=== PATIENT | male | born 1995 | race Caucasian/White ===

== ENCOUNTER 2016-05-30 02:48 | Emergency (ER) | payer OTHER ==
[2016-05-30 02:56] VITALS: TEMP 97.8
[2016-05-30] MEDS ORDERED: FAMOTIDINE 20 MG/2 ML VIAL IV STA (03:11)
[2016-05-30] MEDS ORDERED: ONDANSETRON 4 MG/2 ML VIAL IVP STA (03:11)
[2016-05-30] MEDS ORDERED: SODIUM CHLORIDE 0.9% 1,000 ML IV ONE (03:11)
[2016-05-30 03:31] LABS: Basophils % (A) 0 %; CH 30.4; CHCM 34.7; Eosinophils # (A) 0.2 k/uL (0-0.7); Eosinophils % (A) 1 %; HDW 2.43; HGB 18.4 gm/dL (13.0-17.5); Luc # (Auto) 0.25; Luc % (Auto) 2; Lymphocytes # (A) 2.3 k/uL (1.0-4.8); Lymphocytes % (A) 15 %; MCHC 34.1 g/dL (31.0-37.0); Mean Platelet Volume 8.1; Monocytes # (A) 0.5 k/uL (0-1.0); Monocytes % (A) 3 %; Neutrophils # (A) 12.2 k/uL (1.3-7.7); Neutrophils % (A) 79 %; RBC 6.14 m/uL (4.30-5.90); RDW 12.4 % (11.5-15.5); WBC 15.5 k/uL (3.8-10.6); WBC (Perox) 16.94
[2016-05-30 03:33] LABS: Appearance,Urine Clear (Clear); Bacteria,Urine Rare /hpf; Bilirubin,Urine Negative (Negative); Glucose,Urine (UA) Negative (Negative); Ketones,Urine Negative (Negative); Leukocyte Esterase,Urine Negative (Negative); Mucus,Urine Few /hpf; Nitrite,Urine Negative (Negative); PH, Urine 6.5 (5.0-8.0); Particle Count 5467; Protein,Urine 1+ (Negative); RBC,Urine 1 /hpf (0-5); Specific Gravity,Urine 1.025 (1.001-1.035); Squamous Epithelial Cell,Urine <1 /hpf (0-4); UA Billing (MACRO vs. MICRO) MICRO; WBC,Urine 1 /hpf (0-5)
[2016-05-30 03:41] LABS: ALT 328 U/L (21-72); AST 132 U/L (17-59); Alkaline Phosphatase 95 U/L (38-126); Amylase 108 U/L (30-110); Anion Gap 20 mmol/L; Blood Urea Nitrogen 17 mg/dL (9-20); Calcium 11.1 mg/dL (8.4-10.2); Carbon Dioxide 23 mmol/L (22-30); Chloride 100 mmol/L (98-107); Glucose 118 mg/dL (74-99); Magnesium 1.9 mg/dL (1.6-2.3); Non-African American GFR(MDRD) >60 (>60 ml/min/1.73 sqM); Potassium 4.3 mmol/L (3.5-5.1); Sodium 143 mmol/L (137-145); Total Bilirubin 0.6 mg/dL (0.2-1.3); Total Protein 9.7 g/dL (6.3-8.2)
--- NOTE | 2016-05-30 03:45 | ED ---
Abdominal Pain HPI - General Source: patient, RN notes reviewed Mode of arrival: ambulatory Limitations: no limitations <Peyton Aldridge - Last Filed: 05/30/16 03:54> <Chay Hand - Last Filed: 05/30/16 05:44> - General Chief Complaint: Abdominal Pain Stated Complaint: chest pains, nausea, RONEL Time Seen by Provider: 05/30/16 03:02 - History of Present Illness Initial Comments: Patient's 20-year-old male presents to the emergency room for evaluation of nausea, vomiting, abdominal pain chest pain. Patient states symptoms began about 3 hours ago. Patient states he vomited about 3 times. Patient states every time he is about to vomit he has chest pain that travels to his midepigastric area. Patient does state that when he's vomiting he feels short of breath. Patient's denies any recent travel out of the country. Patient denies trying new foods. Patient denies any fevers, chills. Patient denies any current chest pain while laying down. Patient denies shortness of breath. Patient does admit that he smokes about pack a day. Patient states he is feeling slightly dizzy. Patient denies pain or burning during urination, trouble urinating or blood in urine. Patient denies back pain. Patient denies abdominal surgeries. Patient denies any significant past medical history. Patient denies taking any medications. Patient denies constipation or diarrhea. (Peyton Aldridge) - Related Data Home Medications Medication Instructions Recorded Confirmed No Known Home Medications [No 04/01/15 05/30/16 Known Home Medications] Allergies Allergy/AdvReac Type Severity Reaction Status Date / Time No Known Allergies Allergy Verified 05/30/16 02:56 Review of Systems ROS Other: All systems not noted in ROS Statement are negative. <Peyton Aldridge - Last Filed: 05/30/16 03:54> ROS Other: All systems not noted in ROS Statement are negative. <Chay Hand - Last Filed: 05/30/16 05:44> ROS Statement: Those systems with pertinent positive or pertinent negative responses have been documented in the HPI. Past Medical History Past Medical History: No Reported History History of Any Multi-Drug Resistant Organisms: None Reported Past Surgical History: No Surgical Hx Reported Past Psychological History: ADD/ADHD Smoking Status: Current every day smoker Past Alcohol Use History: Occasional Past Drug Use History: None Reported <Katalina Aldridgera Katelyn - Last Filed: 05/30/16 03:54> General Exam Limitations: no limitations General appearance: alert, in no apparent distress Head exam: Present: atraumatic, normocephalic, normal inspection Eye exam: Present: normal appearance ENT exam: Present: normal exam Neck exam: Present: normal inspection Respiratory exam: Present: normal lung sounds bilaterally. Absent: respiratory distress Cardiovascular Exam: Present: normal rhythm, tachycardia, normal heart sounds GI/Abdominal exam: Present: soft, tenderness (Upper epigastric and right upper quadrant), normal bowel sounds. Absent: distended, guarding, rebound, rigid Extremities exam: Present: normal inspection Back exam: Present: normal inspection Neurological exam: Present: alert, oriented X3, CN II-XII intact, normal gait Psychiatric exam: Present: normal affect, normal mood Skin exam: Present: warm, dry, intact, normal color. Absent: rash <Luis CarlosPeyton L - Last Filed: 05/30/16 03:54> General appearance: alert, in no apparent distress Head exam: Present: atraumatic, normocephalic, normal inspection Eye exam: Present: normal appearance, PERRL, EOMI. Absent: scleral icterus, conjunctival injection, periorbital swelling ENT exam: Present: normal exam, mucous membranes moist Neck exam: Present: normal inspection. Absent: tenderness, meningismus, lymphadenopathy Respiratory exam: Present: normal lung sounds bilaterally. Absent: respiratory distress, wheezes, rales, rhonchi, stridor Cardiovascular Exam: Present: regular rate, normal rhythm, normal heart sounds. Absent: systolic murmur, diastolic murmur, rubs, gallop, clicks GI/Abdominal exam: Present: soft, normal bowel sounds. Absent: distended, tenderness, guarding, rebound, rigid Extremities exam: Present: normal inspection, full ROM, normal capillary refill. Absent: tenderness, pedal edema, joint swelling, calf tenderness Back exam: Present: normal inspection Neurological exam: Present: alert, oriented X3, CN II-XII intact Psychiatric exam: Present: normal affect, normal mood Skin exam: Present: warm, dry, intact, normal color. Absent: rash <Chay Hand - Last Filed: 05/30/16 05:44> - General Exam Comments Initial Comments: Laying in exam room in no acute distress. (Peyton Aldridge) Course <Peyton Aldridge - Last Filed: 05/30/16 03:54> <Chay Hand - Last Filed: 05/30/16 05:44> Vital Signs 05/30/16 02:52 Temperature 97.8 F Pulse Rate 138 H Respiratory 18 Rate Blood Pressure 127/75 O2 Sat by Pulse 96 Oximetry - Reevaluation(s) Reevaluation #1: 05/30/16 03:56 On reevaluation, patient began having diarrhea. Patient has elevated white count and elevated ALT/AST. Gallbladder ultrasound ordered. Case discussed with Dr. Hand. (Peyton Aldridge) Reevaluation #2: 05/30/16 04:03 Patient's pain at this time is much improved 05/30/16 05:44 Patient abdominal exam is normal (Chay Hand) Medical Decision Making - Lab Data Result diagrams: 05/30/16 03:08 05/30/16 03:08 <Peyton Aldridge - Last Filed: 05/30/16 03:54> - Lab Data Result diagrams: 05/30/16 03:08 05/30/16 03:08 - EKG Data -: EKG Interpreted by Nm EKG shows normal: sinus rhythm Rate: normal Interpretation: other (EKG shows normal sinus rhythm rate 94, MT 142, QRS 82, QTC 432) - Radiology Data Radiology results: report reviewed (Ultrasound is negative for acute disease), image reviewed <Chay Hand - Last Filed: 05/30/16 05:44> - Medical Decision Making 20 mallei are for evaluation nausea vomiting diarrhea positive gastroenteritis, x-ray and ultrasound are negative for acute disease labs are normal and patient can be discharged home (Chay Hand) - Lab Data Lab Results 05/30/16 05/30/16 05/30/16 Range/Units 03:08 03:08 03:08 WBC 15.5 H (3.8-10.6) k/uL RBC 6.14 H (4.30-5.90) m/uL Hgb 18.4 H (13.0-17.5) gm/dL Hct 54.0 H (39.0-53.0) % MCV 88.0 (80.0-100.0) fL MCH 30.0 (25.0-35.0) pg MCHC 34.1 (31.0-37.0) g/dL RDW 12.4 (11.5-15.5) % Plt Count 258 (150-450) k/uL Neutrophils % 79 % Lymphocytes % 15 % Monocytes % 3 % Eosinophils % 1 % Basophils % 0 % Neutrophils # 12.2 H (1.3-7.7) k/uL Lymphocytes # 2.3 (1.0-4.8) k/uL Monocytes # 0.5 (0-1.0) k/uL Eosinophils # 0.2 (0-0.7) k/uL Basophils # 0.0 (0-0.2) k/uL D-Dimer (<0.60) mg/L FEU Sodium 143 (137-145) mmol/L Potassium 4.3 (3.5-5.1) mmol/L Chloride 100 (98-107) mmol/L Carbon Dioxide 23 (22-30) mmol/L Anion Gap 20 mmol/L BUN 17 (9-20) mg/dL Creatinine 1.00 (0.66-1.25) mg/dL Est GFR (MDRD) Af Amer >60 (>60 ml/min/1.73 sqM) Est GFR (MDRD) Non-Af >60 (>60 ml/min/1.73 sqM) Glucose 118 H (74-99) mg/dL Calcium 11.1 H (8.4-10.2) mg/dL Magnesium 1.9 (1.6-2.3) mg/dL Total Bilirubin 0.6 (0.2-1.3) mg/dL AST 132 H (17-59) U/L ALT 328 H (21-72) U/L Alkaline Phosphatase 95 (38-126) U/L Total Protein 9.7 H (6.3-8.2) g/dL Albumin 5.6 H (3.5-5.0) g/dL Amylase 108 (30-110) U/L Lipase 434 H (23-300) U/L Urine Color Yellow Urine Appearance Clear (Clear) Urine pH 6.5 (5.0-8.0) Ur Specific [place] 1.025 (1.001-1.035) Urine Protein 1+ H (Negative) Urine Glucose (UA) Negative (Negative) Urine Ketones Negative (Negative) Urine Blood Negative (Negative) Urine Nitrate Negative (Negative) Urine Bilirubin Negative (Negative) Urine Urobilinogen 3.0 (<2.0) mg/dL Ur Leukocyte Esterase Negative (Negative) Urine RBC 1 (0-5) /hpf Urine WBC 1 (0-5) /hpf Ur Squamous Epith Cells <1 (0-4) /hpf Urine Bacteria Rare H (None) /hpf Urine Mucus Few H (None) /hpf 05/30/16 Range/Units 03:08 WBC (3.8-10.6) k/uL RBC (4.30-5.90) m/uL Hgb (13.0-17.5) gm/dL Hct (39.0-53.0) % MCV (80.0-100.0) fL MCH (25.0-35.0) pg MCHC (31.0-37.0) g/dL RDW (11.5-15.5) % Plt Count (150-450) k/uL Neutrophils % % Lymphocytes % % Monocytes % % Eosinophils % % Basophils % % Neutrophils # (1.3-7.7) k/uL Lymphocytes # (1.0-4.8) k/uL Monocytes # (0-1.0) k/uL Eosinophils # (0-0.7) k/uL Basophils # (0-0.2) k/uL D-Dimer <0.17 (<0.60) mg/L FEU Sodium (137-145) mmol/L Potassium (3.5-5.1) mmol/L Chloride (98-107) mmol/L Carbon Dioxide (22-30) mmol/L Anion Gap mmol/L BUN (9-20) mg/dL Creatinine (0.66-1.25) mg/dL Est GFR (MDRD) Af Amer (>60 ml/min/1.73 sqM) Est GFR (MDRD) Non-Af (>60 ml/min/1.73 sqM) Glucose (74-99) mg/dL Calcium (8.4-10.2) mg/dL Magnesium (1.6-2.3) mg/dL Total Bilirubin (0.2-1.3) mg/dL AST (17-59) U/L ALT (21-72) U/L Alkaline Phosphatase (38-126) U/L Total Protein (6.3-8.2) g/dL Albumin (3.5-5.0) g/dL Amylase (30-110) U/L Lipase (23-300) U/L Urine Color Urine Appearance (Clear) Urine pH (5.0-8.0) Ur Specific [place] (1.001-1.035) Urine Protein (Negative) Urine Glucose (UA) (Negative) Urine Ketones (Negative) Urine Blood (Negative) Urine Nitrate (Negative) Urine Bilirubin (Negative) Urine Urobilinogen (<2.0) mg/dL Ur Leukocyte Esterase (Negative) Urine RBC (0-5) /hpf Urine WBC (0-5) /hpf Ur Squamous Epith Cells (0-4) /hpf Urine Bacteria (None) /hpf Urine Mucus (None) /hpf Disposition <Peyton Aldridge - Last Filed: 05/30/16 03:54> <Chay Hand - Last Filed: 05/30/16 05:44> Clinical Impression: Abdominal pain, Gastroenteritis Disposition: HOME SELF-CARE Condition: Good Instructions: Gastroenteritis (ED) Referrals: Amrik Mackay MD [Primary Care Provider] - 1-2 days
[2016-05-30] MEDS ORDERED: SODIUM CHLORIDE 0.9% 2,000 ML IV STA (03:51)
[2016-05-30] MEDS ORDERED: PANTOPRAZOLE 40 MG/10 ML VIAL IVP STA (03:51)
[2016-05-30] MEDS ORDERED: AMPICILLIN-SULBACTAM 3 GM in SODIUM CHLORIDE 0.9% 100 ML IVPB STA (03:51)
[2016-05-30] MEDS ORDERED: MORPHINE SULFATE 4 MG/ML SYRINGE IVP STA (03:51)
--- NOTE | 2016-05-30 05:23 | XR ---
EXAMINATION TYPE: XR chest 2V DATE OF EXAM: 05/30/2016 4:24 AM COMPARISON: NONE HISTORY: Chest pain TECHNIQUE: Frontal and lateral views of the chest are obtained. FINDINGS: Heart and mediastinum are normal. Lungs are clear. Diaphragm is normal. Bony thorax and so ft tissues appear normal. IMPRESSION: Normal chest
--- NOTE | 2016-05-30 05:26 | US ---
EXAMINATION TYPE: US gallbladder DATE OF EXAM: 05/30/2016 3:52 AM COMPARISON: NONE CLINICAL HISTORY: Pain. EXAM MEASUREMENTS: Liver Length: 15.2 cm Gallbladder Wall: 0.2 cm CBD: 0.4 cm Right Kidney: 10.2 x 4.1 x 4.2 cm TECHNOLOGIST IMPRESSION: Pancreas: Obscured by bowel gas Liver: Increased attenuation, course, echogenic parenchyma. Probable fatty liver Gallbladder: wnl Evidence for sonographic Queen's sign: No CBD: wnl Right Kidney: No hydronephrosis or masses seen IMPRESSION: No focal liver defects. No gallstones or dilated ducts.
[2016-05-30 06:16] VITALS: BP 124/70; PULSE 94; RESP 16
== END 2016-05-30 06:13 | disposition home or self-care (01) ==
LOC: EC 02:48
DX: K52.9 Noninfective gastroenteritis and colitis, unspecified (principal); F17.200 Nicotine dependence, unspecified, uncomplicated
CPT/HCPCS: 36415; 93005; 85379; 80053; 82150; 83690; 83735; 85025; 81001; 71020; 76705; 99284; 96365; 96374; 96375; 96361; J2270; J2405; J0295; C9113

== ENCOUNTER 2018-07-02 14:00 | Emergency (ER) | payer OTHER ==
[2018-07-02 14:31] VITALS: BP 106/73; PULSE 94; RESP 18; TEMP 98
[2018-07-02] MEDS ORDERED: ONDANSETRON 4 MG ODT STARTER PACK 2 TAB BTL PO STA (14:51)
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
== END 2018-07-02 15:03 | disposition home or self-care (01) ==
LOC: EC 14:00
DX: K52.9 Noninfective gastroenteritis and colitis, unspecified (principal); T23.261A Burn of second degree of back of right hand, initial encounter; T31.0 Burns involving less than 10% of body surface; F17.200 Nicotine dependence, unspecified, uncomplicated; X15.0XXA Contact with hot stove (kitchen), initial encounter
CPT/HCPCS: 99284; S0119

== ENCOUNTER 2018-09-29 20:11 | Emergency (ER) | payer OTHER ==
[2018-09-29 20:35] VITALS: RESP 18; TEMP 98.7
[2018-09-29] MEDS ORDERED: SODIUM CHLORIDE 0.9% 1,000 ML IV STA (22:00)
[2018-09-29] MEDS ORDERED: diphenhydrAMINE 50 MG/ML 1 ML VIAL IVP STA (22:00)
[2018-09-29] MEDS ORDERED: METOCLOPRAMIDE 5 MG/ML 2 ML VIAL IVP STA (22:00)
[2018-09-29] MEDS ORDERED: ACETAMINOPHEN TAB 325 MG TAB PO STA (22:00)
--- NOTE | 2018-09-29 22:06 | XR ---
EXAMINATION: XR chest 2V DATE AND TIME: 09/29/2018 9:21 PM CLINICAL INDICATION: PHH; Pain TECHNIQUE: Departmental protocol COMPARISON: None FINDINGS: The lungs are clear. The pleural spaces are negative. The cardiac silhouette is not enlarged. The remainder of the mediastinal silhouette is unremarkable. The skeletal structures and soft tissues are negative for acute findings. IMPRESSION: NO ACUTE PROCESS.
--- NOTE | 2018-09-29 23:02 | ED ---
General Adult HPI - General Chief complaint: Upper Respiratory Infection Stated complaint: Congestion, Sore Throat Time Seen by Provider: 09/29/18 21:11 Source: patient, RN notes reviewed, old records reviewed Mode of arrival: ambulatory Limitations: no limitations - History of Present Illness Initial comments: 23-year-old male patient with past medical history of prior headaches presents to ED with chief complaint of headache and cough. Patient was this has been ongoing for approximately 4 days. Patient reports a waxing and waning bitem poral throbbing headache. Patient states that this has been ongoing for approximately 4 days. Patient also reports a mild nonproductive cough during this time. Patient denies any chest pain shortness of breath abdominal pain nausea vomiting or diarrhea. Patient course of this is similar to headaches he has expressed the past. Patient denies worse headache of life. Patient denies acute thunderclap onset. Denies nausea vomiting or diarrhea, changes in vision. Denies any other complaints. Systemic: Pt denies fatigue, fever/chills, rash. Pt denies weakness, night sweats, weight loss. Neuro: Pt denies headache, visual disturbances, syncope or pre-syncope. HEENT: Pt denies ocular discharge or irritation, otalgia, rhinorrhea, pharyngitis or notable lymphadenopathy. Cardiopulmonary: Pt denies chest pain, SOB, heart palpitations, dyspnea on exertion. Abdominal/GI: Pt denies abdominal pain, n/v/d. : Pt denies dysuria, burning w/ urination, frequency/urgency. Denies new onset urinary or bowel incontinence. MSK: Pt denies myalgia, loss of strength or function in extremities. Neuro: Pt denies new onset weakness, paresthesias. - Related Data Previous Rx's Medication Instructions Recorded Acetaminophen with Codeine 1 tab PO Q4H PRN #20 tab 05/30/16 [Tylenol w/codeine #3] Ondansetron [Zofran] 4 mg PO Q8HR PRN #30 tab 05/30/16 Cephalexin [Keflex] 500 mg PO Q8HR #21 cap 07/02/18 Mupirocin 2% Oint [Bactroban 2% 1 applic TOPICAL TID #60 gm 07/02/18 Oint] Ondansetron Odt [Zofran Odt] 4 mg PO Q8HR PRN #15 tab 07/02/18 Allergies Allergy/AdvReac Type Severity Reaction Status Date / Time No Known Allergies Allergy Verified 09/29/18 20:35 Review of Systems ROS Statement: Those systems with pertinent positive or pertinent negative responses have been documented in the HPI. ROS Other: All systems not noted in ROS Statement are negative. Past Medical History Past Medical History: No Reported History History of Any Multi-Drug Resistant Organisms: None Reported Past Surgical History: No Surgical Hx Reported Past Psychological History: ADD/ADHD Smoking Status: Current every day smoker Past Alcohol Use History: Occasional Past Drug Use History: None Reported General Exam - General Exam Comments Initial Comments: Constitutional: NAD, AOX3, Pt has pleasant affect. HEENT: NC/AT, trachea midline, neck supple, no lymphadenopathy. Posterior pharynx non erythematous, without exudates. External ears appear normal, without discharge. Mucous membranes moist. Eyes PERRLA, EOM intact. There is no scleral icterus. No pallor noted. Cardiopulmonary: RRR, no murmurs, rubs or gallops, no JVD noted. Lungs CTAB in anterior and posterior mueller. No peripheral edema. Abdominal exam: Abdomen soft and non-distended. Abdomen non-tender to palpation in all 4 quadrants. Bowel sounds active in LLQ. No hepatosplenomegaly. No ecchymosis Neuro: CN II-XII intact. No nuchal rigidity. No raccon eyes, no balderas sign, no hemotympanum. No cervical spinal tenderness. MSK: No posterior calf tenderness bilaterally, homans sign negative bilaterally. Posterior tibialis and radial pulse +2 bilaterally. Sensation intact in upper and lower extremities. Full active ROM in upper and lower extremities, 5/5 stregnth. Limitations: no limitations Course Vital Signs 09/29/18 20:33 Temperature 98.7 F Pulse Rate 99 Respiratory 18 Rate Blood Pressure 118/77 O2 Sat by Pulse 98 Oximetry Medical Decision Making - Medical Decision Making 23-year-old male patient with past medical history of prior headaches presents to ED with chief complaint of headache and cough. Patient was this has been ongoing for approximately 4 days. Patient reports a waxing and waning bitemporal throbbing headache. Patient states that this has been ongoing for approximately 4 days. Patient also reports a mild nonproductive cough during this time. Patient denies any chest pain shortness of breath abdominal pain nausea vomiting or diarrhea. Patient course of this is similar to headaches he has expressed the past. Patient denies worse headache of life. Patient denies acute thunderclap onset. Denies nausea vomiting or diarrhea, changes in vision. Denies any other complaints. Patient vital signs stable, afebrile. Physical exam did not display acute pathology. Neurologic exam was within normal limits. Chest x-ray revealed no acute process. Shared decision making pt does not want CT of brain. Patient treated for headache. Patient has resolved, currently asymptomatic. Patient will be discharged to follow-up with his primary care provider. Patient is likely also expressing a viral syndrome. Patient will return to ER if condition worsens. Case discussed with Dr. Hand. Disposition Clinical Impression: Viral syndrome, Acute headache Disposition: HOME SELF-CARE Condition: Stable Instructions (If sedation given, give patient instructions): Acute Headache (ED), Viral Syndrome (ED) Additional Instructions: Patient to adhere to previously discussed treatment plan and will take medication(s) as directed. Patient to follow up with PCP in 1-2 days. Patient to return to ED if symptoms do not improve. Return to ER if condition worsens in any way. Follow-up with primary care provider tomorrow. Is patient prescribed a controlled substance at d/c from ED?: No Referrals: Amrik Mackay MD [Primary Care Provider] - 1-2 days
[2018-09-29 23:09] VITALS: BP 117/66; PULSE 83
== END 2018-09-29 23:07 | disposition home or self-care (01) ==
LOC: EC 20:11
DX: B34.9 Viral infection, unspecified (principal); R51 Headache; F17.200 Nicotine dependence, unspecified, uncomplicated
CPT/HCPCS: 71046; 99284; 96374; 96375; 96361; J1200; J2765

== ENCOUNTER 2019-10-27 20:36 | Emergency (ER) | payer OTHER ==
[2019-10-27] MEDS ORDERED: FAMOTIDINE 20 MG/2 ML VIAL IV STA (21:11)
[2019-10-27] MEDS ORDERED: SODIUM CHLORIDE 0.9% 500 ML 500 ML IV STA (21:11)
[2019-10-27] MEDS ORDERED: methylPREDNISolone SOD SUCCI 125 MG/2 ML VIAL IV STA (21:11)
--- NOTE | 2019-10-27 22:41 | ED ---
General Adult HPI - General Chief complaint: Allergic Reaction Stated complaint: Allergic Reaction Time Seen by Provider: 10/27/19 21:04 Source: patient, EMS, RN notes reviewed, old records reviewed Mode of arrival: EMS Limitations: no limitations - History of Present Illness Initial comments: 24-year-old male patient presents to emergency department for ALLERGIC reaction. Patient reports she was stung by a bee. Reports that approximately 2 hours later he began experiencing hives. States he had some nausea. Denies any swelling in the face, denies any sensation of throat closure. Denies any previous ALLERGIC reactions like this. Denies any other complaints. Patient does also report that he slipped in the shower and landed on his gluteus region. He denies any pain. He denies any paresthesias. Denies any loss of bowel or bladder control or any red flag symptoms. Denie any Trauma to head or neck. Systemic: Pt denies fatigue, fever/chills. Pt denies weakness, night sweats, weight loss. Neuro: Pt denies headache, visual disturbances, syncope or pre-syncope. HEENT: Pt denies ocular discharge or irritation, otalgia, rhinorrhea, pharyngi tis or notable lymphadenopathy. Cardiopulmonary: Pt denies chest pain, SOB, heart palpitations, dyspnea on exertion. Abdominal/GI: Pt denies abdominal pain, n/v/d. : Pt denies dysuria, burning w/ urination, frequency/urgency. Denies new onset urinary or bowel incontinence. MSK: Pt denies myalgia, loss of strength or function in extremities. Neuro: Pt denies new onset weakness, paresthesias. - Related Data Previous Rx's Medication Instructions Recorded Acetaminophen with Codeine 1 tab PO Q4H PRN #20 tab 05/30/16 [Tylenol w/codeine #3] Ondansetron [Zofran] 4 mg PO Q8HR PRN #30 tab 05/30/16 Cephalexin [Keflex] 500 mg PO Q8HR #21 cap 07/02/18 Mupirocin 2% Oint [Bactroban 2% 1 applic TOPICAL TID #60 gm 07/02/18 Oint] Ondansetron Odt [Zofran Odt] 4 mg PO Q8HR PRN #15 tab 07/02/18 EPINEPHrine (Auto Inject) [Epipen] 0.3 mg IM ONCE PRN #2 pen 10/27/19 predniSONE 50 mg PO DAILY 4 Days #4 tab 10/27/19 Allergies Allergy/AdvReac Type Severity Reaction Status Date / Time No Known Allergies Allergy Verified 10/27/19 20:44 Review of Systems ROS Statement: Those systems with pertinent positive or pertinent negative responses have been documented in the HPI. ROS Other: All systems not noted in ROS Statement are negative. Past Medical History Past Medical History: No Reported History History of Any Multi-Drug Resistant Organisms: None Reported Past Surgical History: No Surgical Hx Reported Past Psychological History: ADD/ADHD Smoking Status: Current every day smoker Past Alcohol Use History: Occasional Past Drug Use History: None Reported General Exam - General Exam Comments Initial Comments: Constitutional: NAD, AOX3, Pt has pleasant affect. HEENT: NC/AT, trachea midline, neck supple, no lymphadenopathy. Posterior pharynx non erythematous, without exudates. No angioedema or posterior pharyngeal edema. External ears appear normal, without discharge. Mucous membranes moist. Eyes PERRLA, EOM intact. There is no scleral icterus. No pallor noted. Cardiopulmonary: RRR, no murmurs, rubs or gallops, no JVD noted. Lungs CTAB in anterior and posterior mueller. No peripheral edema. Abdominal exam: Abdomen soft and non-distended. Abdomen non-tender to palpation in all 4 quadrants. Bowel sounds active in LLQ. No hepatosplenomegaly. No ecchymosis Neuro: CN II-XII intact. No nuchal rigidity. No raccon eyes, no balderas sign, no hemotympanum. No cervical spinal tenderness. MSK: No posterior calf tenderness bilaterally, homans sign negative bilaterally. Posterior tibialis and radial pulse +2 bilaterally. Sensation intact in upper and lower extremities. Full active ROM in upper and lower extremities, 5/5 stregnth. 5 out of 5 strength psoas and quadriceps muscles. Heel to toe walking intact. Hives are noted on upper and lower extremities. Limitations: no limitations Course Vital Signs 10/27/19 10/27/19 10/27/19 20:37 20:47 20:50 Temperature 98.2 F Pulse Rate 85 Respiratory 16 16 Rate Blood Pressure 117/87 O2 Sat by Pulse 97 Oximetry 10/27/19 21:40 Temperature Pulse Rate 75 Respiratory 18 Rate Blood Pressure 117/83 O2 Sat by Pulse 97 Oximetry Medical Decision Making - Medical Decision Making 24-year-old male patient was ED for evaluation after bee sting and hives. Patient also minor fall in the shower without any pain. Patient bowel sounds are stable, afebrile. Physical exam didn't display hives initially. Patient was administered Benadryl by EMS. Was administered steroids and Pepcid by myself. Hives significantly improved. Patient is requesting discharge. Patient will be discharged to follow-up with primary care prior will be prescribed steroids as well as an EpiPen. Case discussed with Dr. Park. Disposition Clinical Impression: Allergic reaction, Bee sting Disposition: HOME SELF-CARE Condition: Serious Instructions (If sedation given, give patient instructions): General Allergic Reaction (ED) Additional Instructions: Take medications directed. Use EpiPen only for emergency anaphylaxis. Use Benadryl over the counter as needed per dosing recommendations. follow up with PRIMARY care provider tomorrow. Return to ER if condition worsens. Prescriptions: EPINEPHrine (Auto Inject) [Epipen] 0.3 mg IM ONCE PRN #2 pen PRN Reason: Anaphylaxis predniSONE 50 mg PO DAILY 4 Days #4 tab Is patient prescribed a controlled substance at d/c from ED?: No Referrals: None,Stated [Primary Care Provider] - 1-2 days Godfrey De Santiago [STAFF PHYSICIAN] - 1-2 days
[2019-10-28 10:28] VITALS: BP 122/96; PULSE 84; RESP 16; TEMP 97.8
== END 2019-10-27 23:10 | disposition home or self-care (01) ==
LOC: EC 20:36
DX: T63.441A Toxic effect of venom of bees, accidental (unintentional), initial encounter (principal); F17.200 Nicotine dependence, unspecified, uncomplicated; W18.2XXA Fall in (into) shower or empty bathtub, initial encounter
CPT/HCPCS: 99284; 96374; 96375; 96361; J2930

== ENCOUNTER 2020-03-07 10:53 | Emergency (ER) | payer OTHER ==
[2020-03-07 11:04] VITALS: BP 133/85; PULSE 82; RESP 18; TEMP 98
--- NOTE | 2020-03-07 11:21 | ED ---
Upper Extremity HPI - General Chief Complaint: Extremity Injury, Upper Stated Complaint: hand injury Time Seen by Provider: 03/07/20 11:05 Source: patient Mode of arrival: ambulatory Limitations: no limitations - History of Present Illness Initial Comments: 24-year-old male presented for right wrist pain. Patient states that he was trying to get a bolt out when he was working on his car- he states it didnt want to come out and he put more pressure. Pt states he felt like a pop in his distal wrist on the ulnar aspect. He states that there was some swelling that is getting better. Denies redness, denies limited ROM of the digits, denies sensation changes. Denies direct trauma. Patient denies falls. remaining ROS (- ). - Related Data Previous Rx's Medication Instructions Recorded Acetaminophen with Codeine 1 tab PO Q4H PRN #20 tab 05/30/16 [Tylenol w/codeine #3] Ondansetron [Zofran] 4 mg PO Q8HR PRN #30 tab 05/30/16 Cephalexin [Keflex] 500 mg PO Q8HR #21 cap 07/02/18 Mupirocin 2% Oint [Bactroban 2% 1 applic TOPICAL TID #60 gm 07/02/18 Oint] Ondansetron Odt [Zofran Odt] 4 mg PO Q8HR PRN #15 tab 07/02/18 EPINEPHrine (Auto Inject) [Epipen] 0.3 mg IM ONCE PRN #2 pen 10/27/19 predniSONE 50 mg PO DAILY 4 Days #4 tab 10/27/19 predniSONE 50 mg PO DAILY 4 Days #4 tab 03/07/20 Allergies Allergy/AdvReac Type Severity Reaction Status Date / Time bee venom protein (honey bee) Allergy Swelling Verified 03/07/20 11:01 Review of Systems ROS Statement: Those systems with pertinent positive or pertinent negative responses have been documented in the HPI. ROS Other: All systems not noted in ROS Statement are negative. Past Medical History Past Medical History: No Reported History History of Any Multi-Drug Resistant Organisms: None Reported Past Surgical History: No Surgical Hx Reported Past Psychological History: ADD/ADHD Smoking Status: Current every day smoker Past Alcohol Use History: None Reported Past Drug Use History: Marijuana General Exam - General Exam Comments Initial Comments: General: The patient is awake and alert, in no distress, and does not appear acutely ill. Eye: +3 mm pupils are equal, round and reactive to light, extra-ocular movements are intact. No nystagmus. There is normal conjunctiva bilaterally. No signs of icterus. Ears, nose, mouth and throat: There are moist mucous membranes and no oral lesions. Neck: The neck is supple, there is no tenderness or JVD. Musculoskeletal: Normal ROM, no tenderness. Strength 5/5 of the mcp dip and pip (ip) joints of all five digits. Sensation intact. Radial pulses equal bilaterally 2+. Neurological: A&O x 3. CN II-XII intact grossly, There are no obvious motor or sensory deficits. Coordination appears grossly intact. Speech is normal. Skin: Skin is warm and dry and no rashes or lesions are noted. Psychiatric: Cooperative, appropriate mood & affect, normal judgment. Limitations: no limitations Course Vital Signs 03/07/20 03/07/20 11:01 12:37 Temperature 98 F 98 F Pulse Rate 82 82 Respiratory 18 18 Rate Blood Pressure 133/85 133/85 O2 Sat by Pulse 99 99 Oximetry Medical Decision Making - Medical Decision Making a 4-year-old to right wrist pain. No redness no swelling appreciated. Patient neurovascularly intact. Positive Jamila pain along the ulnar aspect of the forearm suspected tendinitis. No limitations in the digits. At this time feel patient is stable for discharge with outpatient steroids, patent and follow up with primary care provider as well as orthopedic surgery return parameters were discussed the patient is discharged. I discussed the complication a few mixed steroids with NSAIDs he verbalized understanding Disposition Clinical Impression: Tendonitis, Wrist pain Disposition: HOME SELF-CARE Condition: Good Additional Instructions: Please use medication as discussed. Please follow-up with family doctor in the next 2 days, follow-up with orthopedic surgery in next week. Please return to emergency room if the symptoms increase or worsen or for any other concerns. Prescriptions: predniSONE 50 mg PO DAILY 4 Days #4 tab Is patient prescribed a controlled substance at d/c from ED?: No Referrals: Amrik Mackay MD [Primary Care Provider] - 1-2 days Lily Barlow DO [Doctor of Osteopathic Medicine] - 1-2 days Time of Disposition: 11:46
--- NOTE | 2020-03-07 11:38 | XR ---
EXAMINATION TYPE: XR wrist complete RT DATE OF EXAM: 03/07/2020 CLINICAL HISTORY: pain TECHNIQUE: Frontal, lateral and oblique images of the right wrist are obtained. COMPARISON: None. FINDINGS: There is no acute fracture/dislocation evident. The joint spaces appear within normal limits. The o verlying soft tissue appears unremarkable. IMPRESSION: There is no acute fracture or dislocation seen. ICD 10 NO FRACTURE, INITIAL EVALUATION
== END 2020-03-07 12:37 | disposition home or self-care (01) ==
LOC: EC 10:53
DX: M67.833 Other specified disorders of tendon, right wrist (principal); F17.200 Nicotine dependence, unspecified, uncomplicated; Z91.030 Bee allergy status; X50.0XXA Overexertion from strenuous movement or load, initial encounter
CPT/HCPCS: 99283

== ENCOUNTER 2021-09-14 23:43 | Emergency (ER) | payer OTHER ==
[2021-09-14 23:47] VITALS: BP 122/85; PULSE 72; RESP 18; TEMP 97.9
[2021-09-14] MEDS ORDERED: methylPREDNISolone SOD SUCCI 125 MG/2 ML VIAL IM ONE (23:49)
[2021-09-14] MEDS ORDERED: diphenhydrAMINE 50 MG/ML 1 ML VIAL IM STA (23:49)
[2021-09-14] MEDS ORDERED: FAMOTIDINE 20 MG TAB PO STA (23:49)
--- NOTE | 2021-09-15 00:28 | ED ---
Allergic Reaction HPI - General Chief complaint: Allergic Reaction Stated complaint: Allergic Reaction Time Seen by Provider: 09/15/21 00:23 Source: patient, RN notes reviewed Mode of arrival: ambulatory Limitations: no limitations - History of Present Illness Initial Comments: This is a 26-year-old male who presents to the emergency department for a bee sting to the left hand. Patient states that many years ago he had a bad reaction to bee sting, and he was told that if he ever had one in the future he should use his EpiPen or come to the emergency department. Patient states that he did not have his EpiPen with him, so he came to the emergency department. He had pain and swelling to the hand, however he did not have any chest pain or shortness of breath. Denies any fevers, chills, sore throat, cough, dyspnea, chest pain, palpitations, abdominal pain, nausea, vomiting, diarrhea, back pain, or headaches. MD Complaint: allergic reaction Exposure: other (Bee sting) - Related Data Previous Rx's Medication Instructions Recorded Acetaminophen with Codeine 1 tab PO Q4H PRN #20 tab 05/30/16 [Tylenol w/codeine #3] Ondansetron [Zofran] 4 mg PO Q8HR PRN #30 tab 05/30/16 Cephalexin [Keflex] 500 mg PO Q8HR #21 cap 07/02/18 Mupirocin 2% Oint [Bactroban 2% 1 applic TOPICAL TID #60 gm 07/02/18 Oint] Ondansetron Odt [Zofran Odt] 4 mg PO Q8HR PRN #15 tab 07/02/18 EPINEPHrine (Auto Inject) [Epipen] 0.3 mg IM ONCE PRN #2 pen 10/27/19 predniSONE 50 mg PO DAILY 4 Days #4 tab 10/27/19 predniSONE 50 mg PO DAILY 4 Days #4 tab 03/07/20 Allergies Allergy/AdvReac Type Severity Reaction Status Date / Time bee venom protein (honey bee) Allergy Swelling Verified 03/07/20 11:01 Review of Systems ROS Statement: Those systems with pertinent positive or pertinent negative responses have been documented in the HPI. ROS Other: All systems not noted in ROS Statement are negative. Past Medical History Past Medical History: No Reported History History of Any Multi-Drug Resistant Organisms: None Reported Past Surgical History: No Surgical Hx Reported Past Psychological History: ADD/ADHD Smoking Status: Current every day smoker Past Alcohol Use History: None Reported Past Drug Use History: Marijuana General Exam Limitations: no limitations General appearance: alert, in no apparent distress Head exam: Present: atraumatic, normocephalic, normal inspection Respiratory exam: Present: normal lung sounds bilaterally. Absent: respiratory distress, wheezes, rales, rhonchi, stridor Cardiovascular Exam: Present: regular rate, normal rhythm, normal heart sounds. Absent: systolic murmur, diastolic murmur, rubs, gallop, clicks Extremities exam: Present: other (Minor swelling and erythema to the left palm. Sensation intact.) Neurological exam: Present: alert, oriented X3, CN II-XII intact Psychiatric exam: Present: normal affect, normal mood Skin exam: Present: warm, dry Course Vital Signs 09/14/21 23:46 Temperature 97.9 F Pulse Rate 72 Respiratory 18 Rate Blood Pressure 122/85 O2 Sat by Pulse 98 Oximetry Medical Decision Making - Medical Decision Making This is a 26-year-old male who presents to the emergency department for a bee sting. Patient was given Solu-Medrol, Pepcid, and Benadryl while in triage. By the time I had evaluated the patient, he states that his symptoms had improved and he requested discharge home. Patient has no signs of airway compromise and appears stable. Patient will be discharged home. Advised to keep his EpiPen on him in the event this happens in the future. Also instructed him to take Benadryl and apply hydrocortisone cream or calamine lotion to the affected area as needed for itching and pain. Return precautions reviewed in depth, the patient is instructed to return to the emergency department with any new, worsening, or concerning symptoms. Patient verbalized understanding. This case was discussed in detail with the attending ED physician. Presentation, findings, and treatment plan discussed in detail as well. Disposition Clinical Impression: Bee sting reaction Disposition: HOME SELF-CARE Instructions (If sedation given, give patient instructions): Insect Bite or Sting (ED) Additional Instructions: Return to the emergency department with any new, worsening, or concerning symptoms. Take Benadryl and apply hydrocortisone cream or calamine lotion as needed for itching and pain. Is patient prescribed a controlled substance at d/c from ED?: No Referrals: Amrik Mackay MD [Primary Care Provider] - 1-2 days
== END 2021-09-15 00:39 | disposition home or self-care (01) ==
LOC: EC 23:43
DX: T63.441A Toxic effect of venom of bees, accidental (unintentional), initial encounter (principal); F17.200 Nicotine dependence, unspecified, uncomplicated; Z91.030 Bee allergy status
CPT/HCPCS: 96372; 99282; J1200; J2930

== ENCOUNTER 2021-10-04 04:13 | Emergency (ER) | payer OTHER ==
[2021-10-04 04:22] VITALS: PULSE 101; RESP 18; TEMP 98.9
--- NOTE | 2021-10-04 05:56 | ED ---
URI HPI - General Chief Complaint: Upper Respiratory Infection Stated Complaint: Cough Source: patient Mode of arrival: ambulatory Limitations: no limitations - History of Present Illness MD Complaint: fever, cough, nasal congestion -: days(s) Consistency: constant Improves With: nothing Worsens With: nothing Context: sick contacts Associated Symptoms: fever, myalgias, headache, nasal congestion, cough - Related Data Previous Rx's Medication Instructions Recorded Acetaminophen with Codeine 1 tab PO Q4H PRN #20 tab 05/30/16 [Tylenol w/codeine #3] Ondansetron [Zofran] 4 mg PO Q8HR PRN #30 tab 05/30/16 Cephalexin [Keflex] 500 mg PO Q8HR #21 cap 07/02/18 Mupirocin 2% Oint [Bactroban 2% 1 applic TOPICAL TID #60 gm 07/02/18 Oint] Ondansetron Odt [Zofran Odt] 4 mg PO Q8HR PRN #15 tab 07/02/18 EPINEPHrine (Auto Inject) [Epipen] 0.3 mg IM ONCE PRN #2 pen 10/27/19 predniSONE 50 mg PO DAILY 4 Days #4 tab 10/27/19 predniSONE 50 mg PO DAILY 4 Days #4 tab 03/07/20 Allergies Allergy/AdvReac Type Severity Reaction Status Date / Time bee venom protein (honey bee) Allergy Swelling Verified 10/04/21 04:19 Review of Systems ROS Statement: Those systems with pertinent positive or pertinent negative responses have been documented in the HPI. ROS Other: All systems not noted in ROS Statement are negative. Constitutional: Reports: fever, chills ENT: Reports: congestion Respiratory: Reports: cough. Denies: dyspnea, wheezes, hemoptysis Cardiovascular: Denies: chest pain, edema, syncope Gastrointestinal: Denies: abdominal pain, vomiting, diarrhea Genitourinary: Denies: dysuria Musculoskeletal: Reports: myalgia Skin: Denies: rash Neurological: Reports: headache. Denies: weakness Past Medical History Past Medical History: No Reported History History of Any Multi-Drug Resistant Organisms: None Reported Past Surgical History: No Surgical Hx Reported Past Psychological History: ADD/ADHD Smoking Status: Current every day smoker Past Alcohol Use History: None Reported Past Drug Use History: Marijuana General Exam Limitations: no limitations General appearance: alert, in no apparent distress Head exam: Present: atraumatic, normocephalic Eye exam: Present: normal appearance. Absent: scleral icterus, conjunctival injection Neck exam: Present: normal inspection, full ROM Respiratory exam: Present: normal lung sounds bilaterally. Absent: respiratory distress, wheezes, rales, rhonchi, stridor Cardiovascular Exam: Present: regular rate, normal rhythm, normal heart sounds. Absent: systolic murmur, diastolic murmur, rubs, gallop GI/Abdominal exam: Present: soft. Absent: distended, tenderness, guarding, rebound, rigid, mass Extremities exam: Present: normal inspection, normal capillary refill. Absent: pedal edema, calf tenderness Back exam: Present: normal inspection. Absent: CVA tenderness (R), CVA tenderness (L) Neurological exam: Present: alert Skin exam: Present: warm, dry, intact, normal color. Absent: rash Course Vital Signs 10/04/21 04:19 Temperature 98.9 F Pulse Rate 101 H Respiratory 18 Rate O2 Sat by Pulse 97 Oximetry Medical Decision Making - Medical Decision Making This patient is 26-year-old man here with fever, myalgias, upper respiratory symptoms. Patient's family member also with similar symptoms and did test positive for COVID-19 infection. Presumed patient has covert infection as well. Discussed appropriate further care and follow-up as well as return parameters. - Lab Data Lab Results 10/04/21 Range/Units 04:26 Coronavirus (PCR) Not Detected (Not Detectd) Disposition Clinical Impression: Viral syndrome Disposition: HOME SELF-CARE Condition: Good Instructions (If sedation given, give patient instructions): Viral Syndrome (ED) Is patient prescribed a controlled substance at d/c from ED?: No Referrals: Amrik Mackay MD [Primary Care Provider] - 1-2 days
--- NOTE | 2021-10-04 07:04 | XR ---
EXAM: XR Chest, 2 Views CLINICAL HISTORY: ITS.REASON XR Reason: cough TECHNIQUE: Frontal and lateral views of the chest. COMPARISON: 09/29/2018 FINDINGS: Lungs: Unremarkable. No consolidation. Pleural space: Unremarkable. No pneumothorax. Heart: Unremarkable. No cardiomegaly. Mediastinum: Unremarkable. Bones/joints: Unremarkable. IMPRESSION: Normal chest x-rays.
== END 2021-10-04 06:00 | disposition home or self-care (01) ==
LOC: EC 04:13
DX: Z91.030 Bee allergy status (principal); F17.200 Nicotine dependence, unspecified, uncomplicated; Z20.822 Contact with and (suspected) exposure to COVID-19; B34.9 Viral infection, unspecified
CPT/HCPCS: 71046; 87635

== ENCOUNTER 2022-08-04 08:44 | Emergency (ER) | payer SELFPAY ==
[2022-08-04 09:01] VITALS: RESP 16
[2022-08-04] MEDS ORDERED: ONDANSETRON 4 MG/2 ML VIAL IVP STA (09:07)
[2022-08-04] MEDS ORDERED: KETOROLAC 15 MG/ML 1 ML VIAL IVP STA (09:07)
[2022-08-04] MEDS ORDERED: SODIUM CHLORIDE 0.9% 2,000 ML IV ONE (09:08)
[2022-08-04] MEDS ORDERED: ACETAMINOPHEN IV (For NPO) 1,000 MG in EMPTY BAG 1 BAG IVPB STA (09:10)
[2022-08-04 09:40] LABS: Basophils % (A) 0 %; Eosinophils # (A) 0.1 k/uL (0-0.7); Eosinophils % (A) 0 %; HCT 41.3 % (39.0-53.0); Lymphocytes # (A) 0.8 k/uL (1.0-4.8); Lymphocytes % (A) 4 %; MCH 30.3 pg (25.0-35.0); MCHC 36.3 g/dL (31.0-37.0); MCV 83.6 fL (80.0-100.0); Mean Platelet Volume 8.7; Monocytes # (A) 0.9 k/uL (0-1.0); Monocytes % (A) 4 %; Neutrophils # (A) 19.2 k/uL (1.3-7.7); Neutrophils % (A) 91 %; Platelet Count 184 k/uL (150-450); RBC 4.94 m/uL (4.30-5.90); RDW 12.9 % (11.5-15.5); WBC 21.2 k/uL (3.8-10.6)
[2022-08-04 09:58] LABS: ALT 131 U/L (4-49); AST 45 U/L (17-59); African American GFR (CKD) >90 (>60 ml/min/1.73 sqM); Albumin 4.5 g/dL (3.5-5.0); Alkaline Phosphatase 61 U/L (38-126); Anion Gap 10 mmol/L; Blood Urea Nitrogen 13 mg/dL (9-20); Calcium 9.3 mg/dL (8.4-10.2); Carbon Dioxide 24 mmol/L (22-30); Chloride 102 mmol/L (98-107); Glucose 136 mg/dL (74-99); Non-African American GFR(CKD) >90 (>60 ml/min/1.73 sqM); Potassium 3.8 mmol/L (3.5-5.1); Sodium 136 mmol/L (137-145); Total Bilirubin 0.9 mg/dL (0.2-1.3); Total Protein 7.8 g/dL (6.3-8.2)
[2022-08-04 11:00] VITALS: BP 132/72; PULSE 92; TEMP 99.3
--- NOTE | 2022-08-04 11:15 | XR ---
EXAMINATION TYPE: XR chest 2V DATE OF EXAM: 08/04/2022 11:12 AM COMPARISON: Chest radiographs from 10/04/2021 TECHNIQUE: XR chest 2V Frontal and lateral views of the chest. CLINICAL INDICATION:Male, 27 years old with history of fever; FINDINGS: Lungs/Pleura: There is no evidence of pleural effusion, focal consolidation, or pneumothorax. Pulmonary vascularity: Unremarkable. Heart/mediastinum: Cardiomediastinal silhouette is unremarkable. Musculoskeletal: No acute osseous pathology. IMPRESSION: No acute cardiopulmonary disease/process.
--- NOTE | 2022-08-04 11:40 | CT ---
EXAMINATION TYPE: CT abdomen pelvis w con CT DLP: 1152.6 mGycm, Automated exposure control for dose reduction was used. DATE OF EXAM: 08/04/2022 11:27 AM COMPARISON: No direct comparisons. CLINICAL INDICATION:Male, 27 years old with history of pain, fever; FEVER TECHNIQUE: Standard CT of the abdomen and pelvis following the administration of 100 cc of Isovue 3 00 IV contrast material. Coronal and sagittal reformats were performed. FINDINGS: LOWER CHEST: Posterior dependent subsegmental atelectasis is noted. ABDOMEN LIVER: Diffusely hypoattenuating parenchyma. GALLBLADDER AND BILE DUCTS: Unremarkable. PANCREAS: Unremarkable. SPLEEN: Unremarkable. ADRENAL GLANDS: Unremarkable. KIDNEYS AND URETERS: No evidence of hydronephrosis or renal calculus. The kidneys enhance symmetrical ly without suspicious focal lesion. Contrast is demonstrated within both collecting systems on the de layed phase. PELVIS BLADDER: Unremarkable REPRODUCTIVE: Unremarkable. ABDOMEN & PELVIS STOMACH AND BOWEL: Stomach and duodenum are unremarkable. Distal colonic diverticulosis without evide nce for acute diverticulitis. The appendix is within normal limits. No evidence of bowel obstruction. PERITONEUM: No evidence of pneumoperitoneum or free fluid. VASCULATURE: No evidence of aortic aneurysm. MUSCULOSKELETAL: No acute osseous abnormalities LYMPH NODES: No gross evidence for lymphadenopathy. SOFT TISSUE/ABDOMINAL WALL: Small fat filled umbilical hernia. IMPRESSION: 1. No acute abdominal/pelvic process. 2. Colonic diverticulosis without evidence for acute diverticulitis. 3. Hepatic steatosis.
--- NOTE | 2022-08-04 11:55 | ED ---
General Adult HPI - General Chief complaint: Fever Stated complaint: fever, vomiting Time Seen by Provider: 08/04/22 08:59 Source: patient, RN notes reviewed Mode of arrival: ambulatory Limitations: no limitations - History of Present Illness Initial comments: 19-year-old male presents emergency Department chief complaint of fever, nausea vomiting bodyaches. Patient has not been able take any Tylenol or Motrin. Patient with vomiting throughout the morning. Patient denies any sick contacts. Patient states his mild congestionand cough. Patient denies any localized abdominal pain. He states it is aches toe. No went to neck pain or neck stiffness. - Related Data Previous Rx's Medication Instructions Recorded Amoxicillin 500 mg PO Q8H #30 capsule 08/04/22 Ondansetron Odt [Zofran Odt] 4 mg PO Q8HR PRN #10 tab 08/04/22 Allergies Allergy/AdvReac Type Severity Reaction Status Date / Time bee venom protein (honey bee) Allergy Anaphylaxis Verified 08/04/22 12:10 Review of Systems ROS Statement: Those systems with pertinent positive or pertinent negative responses have been documented in the HPI. ROS Other: All systems not noted in ROS Statement are negative. Past Medical History Past Medical History: No Reported History History of Any Multi-Drug Resistant Organisms: None Reported Past Surgical History: No Surgical Hx Reported Past Psychological History: ADD/ADHD Smoking Status: Vaper Past Alcohol Use History: None Reported Past Drug Use History: Marijuana General Exam Limitations: no limitations General appearance: alert, in no apparent distress Head exam: Present: atraumatic, normocephalic, normal inspection Eye exam: Present: normal appearance, PERRL, EOMI. Absent: scleral icterus, conjunctival injection, periorbital swelling ENT exam: Present: mucous membranes moist. Absent: normal oropharynx (Erythema) Neck exam: Present: normal inspection, full ROM. Absent: tenderness, meningismus, lymphadenopathy Respiratory exam: Present: normal lung sounds bilaterally. Absent: respiratory distress, wheezes, rales, rhonchi, stridor Cardiovascular Exam: Present: normal rhythm, tachycardia, normal heart sounds. Absent: systolic murmur, diastolic murmur, rubs, gallop, clicks GI/Abdominal exam: Present: soft, tenderness, normal bowel sounds. Absent: distended, guarding, rebound, rigid Course Vital Signs 08/04/22 08/04/22 08/04/22 08:56 10:26 10:57 Temperature 102 F H 101 F H 99.3 F Pulse Rate 103 H 92 Respiratory 16 16 Rate Blood Pressure 111/81 132/72 O2 Sat by Pulse 98 96 Oximetry Medical Decision Making - Medical Decision Making Was pt. sent in by a medical professional or institution (, PA, POTTERY STRIPER, urgent care, hospital, or [facility]...) When possible be specific @ -No Did you speak to anyone other than the patient for history (EMS, parent, family, police, friend...)? What history was obtained from this source @ -No Did you review nursing and triage notes (agree or disagree)? Why? @ -I reviewed and agree with nursing and triage notes Were old charts reviewed (outside hosp., previous admission, EMS record, old EKG, old radiological studies, urgent care reports/EKG's, [facility] records)? Report findings @ -No old charts were reviewed Differential Diagnosis (chest pain, altered mental status, abdominal pain women, abdominal pain men, vaginal bleeding, weakness, fever, dyspnea, syncope, headache, dizziness, GI bleed, back pain, seizure, CVA, palpatations, mental health, musculoskeletal)? @ -Differential Fever: Pneumonia, viral URI, endocarditis, myocarditis, pericarditis, otitis, sinusitis, peritonsillar Abscess, retropharyngeal Abscess, epiglottitis, peritonitis, appendicitis, Alexa cystitis, diverticulitis, hepatitis, colitis, UTI, PID, TOA, pyelonephritis, prostatitis, epididymitis, meningitis, encephalitis, pulmonary embolism, CVA, thyroid storm, pancreatitis, adrenal crisis, cavernous sinus thrombosis, this is not meant to be an all-inclusive list. ble EKG interpreted by me (3pts min.). @ -None X-rays interpreted by me (1pt min.). @ -Chest x-ray shows no acute process CT interpreted by me (1pt min.). @ -CT abdomen and pelvis did not reveal any acute process. U/S interpreted by me (1pt. min.). @ -None done What testing was considered but not performed or refused? (CT, X-rays, U/S, labs)? Why? @ -None What meds were considered but not given or refused? Why? @ -None Did you discuss the management of the patient with other professionals (professionals i.e. , PA, POTTERY STRIPER, lab, RT, psych nurse, adoption social worker, service establishment attendant, teacher, chief quality officer, medical case manager)? Give summary @ -No Was smoking cessation discussed for >3mins.? @ -No Was critical care preformed (if so, how long)? @ -No Were there social determinants of health that impacted care today? How? (Homelessness, low income, unemployed, alcoholism, drug addiction, transportation, low edu. Level, literacy, decrease access to med. care, fdc, rehab)? @ -No Was there de-escalation of care discussed even if they declined (Discuss DNR or withdrawal of care, Hospice)? DNR status @ -No What co-morbidities impacted this encounter? (DM, HTN, Smoking, COPD, CAD, Cancer, CVA, ARF, Chemo, Hep., AIDS, mental health diagnosis, sleep apnea, morbid obesity)? @ -None Was patient admitted / discharged? Hospital course, mention meds given and route, prescriptions, significant lab abnormalities, going to OR and other pertinent info. @ -Discharge patient presented for fever, multiple complaints congestion, ab dominal pain nausea vomiting patient did have significant leukocytosis imaging was negative patient found to have strep pharyngitis was discharged on antibiotics Tylenol Motrin return parameters discussed Undiagnosed new problem with uncertain prognosis? @ -No Drug Therapy requiring intensive monitoring for toxicity (Heparin, Nitro, Insulin, Cardizem)? @ -No Were any procedures done? @ -No Diagnosis/ Strep pharyngitis] Acute, or Chronic, or Acute on Chronic? @ -Acute Uncomplicated (without systemic symptoms) or Complicated (systemic symptoms)? @ -Uncomplicated Side effects of treatment? @ -No Exacerbation, Progression, or Severe Exacerbation? @ -No Poses a threat to life or bodily function? How? (Chest pain, [place], [place], pneumonia, PE, COPD, DKA, ARF, appy, cholecystitis, CVA, Diverticulitis, Homicidal, Suicidal, threat to staff... and all critical care pts) @ -No - Lab Data Result diagrams: 08/04/22 09:20 08/04/22 09:20 Lab Results 08/04/22 08/04/22 08/04/22 Range/Units 09:02 09:20 09:20 WBC 21.2 H (3.8-10.6) k/uL RBC 4.94 (4.30-5.90) m/uL Hgb 15.0 (13.0-17.5) gm/dL Hct 41.3 (39.0-53.0) % MCV 83.6 (80.0-100.0) fL MCH 30.3 (25.0-35.0) pg MCHC 36.3 (31.0-37.0) g/dL RDW 12.9 (11.5-15.5) % Plt Count 184 (150-450) k/uL MPV 8.7 Neutrophils % 91 % Lymphocytes % 4 % Monocytes % 4 % Eosinophils % 0 % Basophils % 0 % Neutrophils # 19.2 H (1.3-7.7) k/uL Lymphocytes # 0.8 L (1.0-4.8) k/uL Monocytes # 0.9 (0-1.0) k/uL Eosinophils # 0.1 (0-0.7) k/uL Basophils # 0.0 (0-0.2) k/uL Sodium 136 L (137-145) mmol/L Potassium 3.8 (3.5-5.1) mmol/L Chloride 102 (98-107) mmol/L Carbon Dioxide 24 (22-30) mmol/L Anion Gap 10 mmol/L BUN 13 (9-20) mg/dL Creatinine 0.73 (0.66-1.25) mg/dL Est GFR (CKD-EPI)AfAm >90 (>60 ml/min/1.73 sqM) Est GFR (CKD-EPI)NonAf >90 (>60 ml/min/1.73 sqM) Glucose 136 H (74-99) mg/dL Calcium 9.3 (8.4-10.2) mg/dL Total Bilirubin 0.9 (0.2-1.3) mg/dL AST 45 (17-59) U/L ALT 131 H (4-49) U/L Alkaline Phosphatase 61 (38-126) U/L Total Protein 7.8 (6.3-8.2) g/dL Albumin 4.5 (3.5-5.0) g/dL Influenza Type A (PCR) Not Detected (Not Detectd) Influenza Type B (PCR) Not Detected (Not Detectd) RSV (PCR) Not Detected (Not Detectd) SARS-CoV-2 (PCR) Not Detected (Not Detectd) Group A Strep (PCR) (Not Detectd) 08/04/22 Range/Units 10:42 WBC (3.8-10.6) k/uL RBC (4.30-5.90) m/uL Hgb (13.0-17.5) gm/dL Hct (39.0-53.0) % MCV (80.0-100.0) fL MCH (25.0-35.0) pg MCHC (31.0-37.0) g/dL RDW (11.5-15.5) % Plt Count (150-450) k/uL MPV Neutrophils % % Lymphocytes % % Monocytes % % Eosinophils % % Basophils % % Neutrophils # (1.3-7.7) k/uL Lymphocytes # (1.0-4.8) k/uL Monocytes # (0-1.0) k/uL Eosinophils # (0-0.7) k/uL Basophils # (0-0.2) k/uL Sodium (137-145) mmol/L Potassium (3.5-5.1) mmol/L Chloride (98-107) mmol/L Carbon Dioxide (22-30) mmol/L Anion Gap mmol/L BUN (9-20) mg/dL Creatinine (0.66-1.25) mg/dL Est GFR (CKD-EPI)AfAm (>60 ml/min/1.73 sqM) Est GFR (CKD-EPI)NonAf (>60 ml/min/1.73 sqM) Glucose (74-99) mg/dL Calcium (8.4-10.2) mg/dL Total Bilirubin (0.2-1.3) mg/dL AST (17-59) U/L ALT (4-49) U/L Alkaline Phosphatase (38-126) U/L Total Protein (6.3-8.2) g/dL Albumin (3.5-5.0) g/dL Influenza Type A (PCR) (Not Detectd) Influenza Type B (PCR) (Not Detectd) RSV (PCR) (Not Detectd) SARS-CoV-2 (PCR) (Not Detectd) Group A Strep (PCR) DETECTED A (Not Detectd) Disposition Clinical Impression: Strep pharyngitis, Nausea and vomiting Disposition: HOME SELF-CARE Condition: Stable Instructions (If sedation given, give patient instructions): Strep Throat (ED) Additional Instructions: Please return to the Emergency Department if symptoms worsen or any other concerns. Prescriptions: Amoxicillin 500 mg PO Q8H #30 capsule Ondansetron Odt [Zofran Odt] 4 mg PO Q8HR PRN #10 tab PRN Reason: Nausea Is patient prescribed a controlled substance at d/c from ED?: No Referrals: None,Stated [Primary Care Provider] - 1-2 days Time of Disposition: 11:54
== END 2022-08-04 12:12 | disposition home or self-care (01) ==
LOC: EC 08:44
DX: J02.0 Streptococcal pharyngitis (principal); B95.0 Streptococcus, group A, as the cause of diseases classified elsewhere; R11.2 Nausea with vomiting, unspecified; F17.290 Nicotine dependence, other tobacco product, uncomplicated; F12.90 Cannabis use, unspecified, uncomplicated; Z20.822 Contact with and (suspected) exposure to COVID-19; Z91.030 Bee allergy status
CPT/HCPCS: 36415; 87651; 80053; 85025; 87636; 71046; 74177; 99284; 96374; 96375 ×2; 96361 ×2; J2405; J0131; J1885; Q9967

== ENCOUNTER 2023-06-20 01:04 | Emergency (ER) | payer OTHER ==
[2023-06-20 01:34] VITALS: TEMP 98.1
[2023-06-20] MEDS: KETOROLAC 15 MG/ML 1 ML VIAL IVP STA ×2 (02:54→05:18)
[2023-06-20] MEDS: LIDOCAINE 4% PATCH TOPICAL ONE (02:54)
[2023-06-20] MEDS: HYDROmorphone 0.5 MG/0.5 ML SYRINGE IVP STA (04:37)
[2023-06-20] MEDS: methylPREDNISolone SOD SUCCI 40 MG/ML 1 ML VIAL IV STA (04:40)
--- NOTE | 2023-06-20 04:53 | CT ---
EXAM: CT Lumbar Spine Without Intravenous Contrast CLINICAL HISTORY: ITS.REASON CT Reason: pain TECHNIQUE: Axial computed tomography images of the lumbar spine without intravenous contrast. CTDI is 22.9 mGy and DLP is 857.9 mGy-cm. This CT exam was performed using one or more of the following dose reduction techniques: automated exposure control, adjustment of the mA and/or kV according to patient size, and/or use of iterative reconstruction technique. COMPARISON: No relevant prior studies available. FINDINGS: Vertebrae: No acute fracture. No subluxation. Discs/spinal canal/neural foramina: No significant spinal canal stenosis. Mild left L5-S1 foraminal stenosis Soft tissues: Enlarged fatty liver. IMPRESSION: No acute fracture. Enlarged fatty liver.
[2023-06-20] MEDS: HYDROmorphone 1 MG/ML 1 ML SYRINGE IVP STA (05:18)
[2023-06-20 05:32] VITALS: BP 122/81; PULSE 84; RESP 20
--- NOTE | 2023-06-20 05:51 | ED ---
General Adult HPI - General Chief complaint: Back Pain/Injury Stated complaint: BACK PAIN Time Seen by Provider: 06/20/23 02:16 Source: patient, RN notes reviewed, old records reviewed Mode of arrival: EMS Limitations: no limitations - History of Present Illness Initial comments: Patient is a 27-year-old male who presents emergency department complaining of back pain. States he was twisting to stretch his back prior to arrival when he felt sudden onset of lower back pain. Denies any weakness in his lower extremities but pain when he moves his legs. Denies any saddle anesthesias or groin paresthesias. Denies any urinary or bowel incontinence or retention. No other injuries. Presents for further evaluation. Back pain was atraumatic. - Related Data Previous Rx's Medication Instructions Recorded Amoxicillin 500 mg PO Q8H #30 capsule 08/04/22 Ondansetron Odt [Zofran Odt] 4 mg PO Q8HR PRN #10 tab 08/04/22 Cyclobenzaprine [Flexeril] 5 mg PO BID 7 Days #14 tablet 06/20/23 Lidocaine 5% Patch [Lidoderm 5% 1 patch TOPICAL DAILY PRN 14 Days 06/20/23 Patch] #14 patch Allergies Allergy/AdvReac Type Severity Reaction Status Date / Time bee venom protein (honey bee) Allergy Anaphylaxis Verified 08/04/22 12:10 Review of Systems ROS Statement: Those systems with pertinent positive or pertinent negative responses have been documented in the HPI. Review of Systems: CONST: Denies fever EYES: Denies blurry vision ENT: Denies nasal congestion C/V: Denies Chest pain RESP: Denies shortness of breath GI: Denies abdominal pain : Denies dysuria SKIN: Denies rash. MSK: Endorses back pain NEURO: Denies headache ROS Other: All systems not noted in ROS Statement are negative. Past Medical History Past Medical History: No Reported History History of Any Multi-Drug Resistant Organisms: None Reported Past Surgical History: No Surgical Hx Reported Past Psychological History: ADD/ADHD Smoking Status: Current every day smoker, Vaper Past Alcohol Use History: None Reported Past Drug Use History: Marijuana General Exam - General Exam Comments Initial Comments: General: Appears in mild to moderate distress secondary to back pain HEAD: Normal with no signs of head trauma. EYES: EOMI ENT: Hearing grossly intact, normal oropharynx. RESPIRATORY: Clear breath sounds bilaterally. No wheezes, rales, or rhonchi. C/V: Regular rate and rhythm. S1 and S2 auscultated, no edema, peripheral pulses 2+ and intact throughout ABD: Abd is soft, nontender, nondistended EXT: Normal range of motion, no obvious deformity. Patient does have some mild midline lower lumbar spine tenderness to palpation but seems to be mostly paraspinal muscles bilaterally. SKIN: No rashes or lesions observed on exposed skin. NEURO: Alert and oriented x 4. No focal deficits. Limitations: no limitations Course Vital Signs 06/20/23 06/20/23 01:06 05:21 Temperature 98.1 F Pulse Rate 93 84 Respiratory 18 20 Rate Blood Pressure 122/88 122/81 O2 Sat by Pulse 99 96 Oximetry Medical Decision Making - Medical Decision Making Was pt. sent in by a medical professional or institution (, PA, COMPRESSED YEAST SUPERVISOR, urgent care, hospital, or [facility]...) When possible be specific @ -No Did you speak to anyone other than the patient for history (EMS, parent, family, police, friend...)? What history was obtained from this source @ -No Did you review nursing and triage notes (agree or disagree)? Why? @ -I reviewed and agree with nursing and triage notes Were old charts reviewed (outside hosp., previous admission, EMS record, old EKG, old radiological studies, urgent care reports/EKG's, [facility] records)? Report findings @ -No old charts were reviewed Differential Diagnosis (chest pain, altered mental status, abdominal pain women, abdominal pain men, vaginal bleeding, weakness, fever, dyspnea, syncope, heada spencer, dizziness, GI bleed, back pain, seizure, CVA, palpatations, mental health, musculoskeletal)? @ -Differential Musculoskeletal Muscular strain, contusion, ligament sprain, fracture, arthritis, septic arthritis, bursitis, cellulitis, muscle spasm, nerve compression, DVT, arterial occlusion, herpes zoster, electrolyte abnormality, tumor.... This is not meant to be in all inclusive list EKG interpreted by me (3pts min.). @ -None done X-rays interpreted by me (1pt min.). @ -None done CT interpreted by me (1pt min.). @ -CT imaging of the lumbar spine reveals no obvious acute injury U/S interpreted by me (1pt. min.). @ -None done What testing was considered but not performed or refused? (CT, X-rays, U/S, labs)? Why? @ -None What meds were considered but not given or refused? Why? @ -None Did you discuss the management of the patient with other professionals (professionals i.e. , [employer], COMPRESSED YEAST SUPERVISOR, lab, RT, psych nurse, hospice social worker, air tube releaser, teacher, medical officer, watch case polisher)? Give summary @ -No Was smoking cessation discussed for >3mins.? @ -No Was critical care preformed (if so, how long)? @ -No Were there social determinants of health that impacted care today? How? (Homelessness, low income, unemployed, alcoholism, drug addiction, transportation, low edu. Level, literacy, decrease access to med. care, retirement, rehab)? @ -No Was there de-escalation of care discussed even if they declined (Discuss DNR or withdrawal of care, Hospice)? DNR status @ -No What co-morbidities impacted this encounter? (DM, HTN, Smoking, COPD, CAD, Cancer, CVA, ARF, Chemo, Hep., AIDS, mental health diagnosis, sleep apnea, morbid obesity)? @ -None Was patient admitted / discharged? Hospital course, mention meds given and route, prescriptions, significant lab abnormalities, going to OR and other pertinent info. @ -Patient presents with atraumatic back pain. He will have an IV started and we will provide analgesia medications. Patient was in agreement this plan. CT imaging of the lumbar spine will also be obtained. Vital signs within acceptable limits. No concern for cauda equina syndrome at this time. Patient requires redosing of analgesia medications. CT imaging negative for any obvious acute process. I discussed results with the patient. We will attempt 1 additional dose of pain meds and reevaluate. He was in agreement the plan. On reevaluation, pain is improved. He will be discharged home at this time with analgesia medications. Diagnosis is back strain. Given orthopedic follow-up. Patient was in agreement this plan. I will provide the patient with a prescription for Flexeril, lidocaine patches. I instructed the patient to follow up with their PCP in the next 1-3 days. I provided contact information for follow up with Dr. Barlow. I explained that the patient should return to the emergency department if they experience any worsening symptoms. Strict return precautions were discussed with the patient. The patient expressed understanding of these instructions. I answered all questions that the patient had. The patient was discharged home in good condition with their prescriptions and follow up information. Undiagnosed new problem with uncertain prognosis? @ -No Drug Therapy requiring intensive monitoring for toxicity (Heparin, Nitro, Insulin, Cardizem)? @ -No Were any procedures done? @ -No Diagnosis/symptom? @ -Atraumatic back strain Acute, or Chronic, or Acute on Chronic? @ -Acute Uncomplicated (without systemic symptoms) or Complicated (systemic symptoms)? @ -Uncomplicated Side effects of treatment? @ -No Exacerbation, Progression, or Severe Exacerbation? @ -No Poses a threat to life or bodily function? How? (Chest pain, [place], [place], pneumonia, PE, COPD, DKA, ARF, appy, cholecystitis, CVA, Diverticulitis, Homicidal, Suicidal, threat to staff... and all critical care pts) @ -No Disposition Clinical Impression: Mechanical back pain, Strain of lumbar region Disposition: HOME SELF-CARE Condition: Fair Instructions (If sedation given, give patient instructions): Acute Low Back Pain (ED) Prescriptions: Cyclobenzaprine [Flexeril] 5 mg PO BID 7 Days #14 tablet Lidocaine 5% Patch [Lidoderm 5% Patch] 1 patch TOPICAL DAILY PRN 14 Days #14 patch PRN Reason: Pain Is patient prescribed a controlled substance at d/c from ED?: No Referrals: None,Stated [Primary Care Provider] - 1-2 days Lily Barlow DO [Doctor of Osteopathic Medicine] - 1-2 days Time of Disposition: 06:08
[2023-06-20] MEDS: ACET/COD 300 MG/30 MG STARTER PACK 6 TAB BTL PO STA (06:13)
== END 2023-06-20 07:01 | disposition home or self-care (01) ==
LOC: EC 01:04
DX: S39.012A Strain of muscle, fascia and tendon of lower back, initial encounter (principal); F17.290 Nicotine dependence, other tobacco product, uncomplicated; F12.90 Cannabis use, unspecified, uncomplicated; Z91.030 Bee allergy status; X58.XXXA Exposure to other specified factors, initial encounter
CPT/HCPCS: 72131; 99284; 96374; 96375 ×2; 96376 ×2; J2920; J3360; J1170 ×2; J1885; 96361

== ENCOUNTER 2023-09-30 10:29 | Emergency (ER) | payer OTHER ==
[2023-09-30 11:07] VITALS: RESP 18
--- NOTE | 2023-09-30 12:47 | ED ---
Skin/Abscess/FB HPI - General Chief complaint: Skin/Abscess/Foreign Body Stated complaint: bug bite-hand Time Seen by Provider: 09/30/23 12:45 Source: patient, RN notes reviewed Mode of arrival: ambulatory Limitations: no limitations - History of Present Illness Initial comments: 28-year-old male presented to the ER with a chief complaint of a bug bite. Patient states he was mowing the lawn yesterday and believes he got bit by an insect. He is unsure what the exact insect was but does state he is allergic to bees. He states since incident his right dorsal hand has been erythematous and edematous. He denies any paresthesias or injuries. He reports he did not remove the stinger. He denies any headache, cough, congestion, difficulty breathing, chest pain, abdominal pain, urinary complaints or peripheral edema. No fever or chills. - Related Data Previous Rx's Medication Instructions Recorded Amoxicillin 500 mg PO Q8H #30 capsule 08/04/22 Ondansetron Odt [Zofran Odt] 4 mg PO Q8HR PRN #10 tab 08/04/22 Cyclobenzaprine [Flexeril] 5 mg PO BID 7 Days #14 tablet 06/20/23 Lidocaine 5% Patch [Lidoderm 5% 1 patch TOPICAL DAILY PRN 14 Days 06/20/23 Patch] #14 patch Hydrocortisone Cream 1 applic TOPICAL TID PRN #28 gm 09/30/23 [Hydrocortisone 1% Cream] Allergies Allergy/AdvReac Type Severity Reaction Status Date / Time bee venom protein (honey bee) Allergy Anaphylaxis Verified 09/30/23 11:07 Review of Systems ROS Statement: Those systems with pertinent positive or pertinent negative responses have been documented in the HPI. ROS Other: All systems not noted in ROS Statement are negative. Past Medical History Past Medical History: No Reported History History of Any Multi-Drug Resistant Organisms: None Reported Past Surgical History: No Surgical Hx Reported Past Psychological History: ADD/ADHD Smoking Status: Current every day smoker, Vaper Past Alcohol Use History: None Reported Past Drug Use History: Marijuana General Exam Limitations: no limitations General appearance: alert, in no apparent distress Respiratory exam: Present: normal lung sounds bilaterally. Absent: respiratory distress, wheezes, rales, rhonchi, stridor Cardiovascular Exam: Present: regular rate, normal rhythm, normal heart sounds. Absent: systolic murmur, diastolic murmur, rubs, gallop, clicks Extremities exam: Present: normal inspection, full ROM, normal capillary refill, other (Edema to right dorsal hand. No foreign body present. Patient has full active range of motion. 2+ right radial pulse. Sensation intact. 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 Absent: tenderness, pedal edema, joint swelling, calf tenderness Skin exam: Present: warm, dry, intact, normal color. Absent: rash Course Vital Signs 09/30/23 09/30/23 11:04 13:18 Temperature 97.6 F 98.0 F Pulse Rate 58 L 72 Respiratory 18 18 Rate Blood Pressure 112/66 120/80 O2 Sat by Pulse 99 97 Oximetry Medical Decision Making - Medical Decision Making Was pt. sent in by a medical professional or institution (NAVID Conklin, BENEFITS ADMINISTRATOR, urgent care, hospital, or long term...) When possible be specific @ -No Did you speak to anyone other than the patient for history (EMS, parent, family, police, friend...)? What history was obtained from this source @ -No Did you review nursing and triage notes (agree or disagree)? Why? @ -I reviewed and agree with nursing and triage notes Were old charts reviewed (outside hosp., previous admission, EMS record, old EKG, old radiological studies, urgent care reports/EKG's, long term records)? Report findings @ -No old charts were reviewed Differential Diagnosis (chest pain, altered mental status, abdominal pain women, abdominal pain men, vaginal bleeding, weakness, fever, dyspnea, syncope, headache, dizziness, GI bleed, back pain, seizure, CVA, palpatations, mental health, musculoskeletal)? @ -Bee sting, insect bite, cellulitis this list is not meant to be all- inclusive EKG interpreted by me (3pts min.). @ -None X-rays interpreted by me (1pt min.). @ -None done CT interpreted by me (1pt min.). @ -None done U/S interpreted by me (1pt. min.). @ -None done What testing was considered but not performed or refused? (CT, X-rays, U/S, labs)? Why? @ -None What meds were considered but not given or refused? Why? @ -None Did you discuss the management of the patient with other professionals (professionals i.e. , PA, BENEFITS ADMINISTRATOR, lab, RT, psych nurse, vp digital marketing social media and crm, gum puller, teacher, officer lieutenant, case work aide)? Give summary @ -No Was smoking cessation discussed for >3mins.? @ -No Was critical care preformed (if so, how long)? @ -No Were there social determinants of health that impacted care today? How? (Homelessness, low income, unemployed, alcoholism, drug addiction, transportation, low edu. Level, literacy, decrease access to med. care, care home, rehab)? @ -No Was there de-escalation of care discussed even if they declined (Discuss DNR or withdrawal of care, Hospice)? DNR status @ -No What co-morbidities impacted this encounter? (DM, HTN, Smoking, COPD, CAD, Cancer, CVA, ARF, Chemo, Hep., AIDS, mental health diagnosis, sleep apnea, morbid obesity)? @ -None Was patient admitted / discharged? Hospital course, mention meds given and route, prescriptions, significant lab abnormalities, going to OR and other pertinent info. @ -Discharged. 28-year-old male presented to the ER with a chief complaint of right hand pain. History and physical exam completed. Vitals stable. Patient in no signs of acute distress and nontoxic-appearing. Right upper extremity neurovascular intact. There is mild erythema and edema to right dorsal hand. No foreign body present. No focal bony tenderness. Given patient's history and physical exam findings it is believed patient may have been bitten by an insect. Patient given Benadryl in the ER for allergic reaction. Hydrocortisone cream prescribed. Patient stable for discharge at this time. Return parameters discussed. Patient discharged stable condition. Patient verbally expressed understanding and agreement with care plan. Case discussed with ED attending, Dr. Jaramillo. Undiagnosed new problem with uncertain prognosis? @ -No Drug Therapy requiring intensive monitoring for toxicity (Heparin, Nitro, Insulin, Cardizem)? @ -No Were any procedures done? @ -No Diagnosis/symptom? @ -Insect bite Acute, or Chronic, or Acute on Chronic? @ -Acute Uncomplicated (without systemic symptoms) or Complicated (systemic symptoms)? @ -Uncomplicated Side effects of treatment? @ -No Exacerbation, Progression, or Severe Exacerbation? @ -No Poses a threat to life or bodily function? How? (Chest pain, [place], [place], pneumonia, PE, COPD, DKA, ARF, appy, cholecystitis, CVA, Diverticulitis, Homicidal, Suicidal, threat to staff... and all critical care pts) @ -No Disposition Clinical Impression: Insect bite Disposition: HOME SELF-CARE Condition: Stable Instructions (If sedation given, give patient instructions): Insect Bite or Sting (ED) Additional Instructions: Follow-up with primary care physician. Return to the ER for any new or worsening concerns. Prescriptions: Hydrocortisone Cream [Hydrocortisone 1% Cream] 1 applic TOPICAL TID PRN #28 gm PRN Reason: Rash Is patient prescribed a controlled substance at d/c from ED?: No Referrals: None,Stated [Primary Care Provider] - 1-2 days Forms: Area PCPs Time of Disposition: 12:47
[2023-09-30] MEDS: diphenhydrAMINE 50 MG CAP PO STA (13:15)
[2023-09-30 13:20] VITALS: BP 120/80; PULSE 72; TEMP 98
== END 2023-09-30 13:19 | disposition home or self-care (01) ==
LOC: EC 10:29
DX: S60.561A Insect bite (nonvenomous) of right hand, initial encounter (principal); F17.290 Nicotine dependence, other tobacco product, uncomplicated; F12.90 Cannabis use, unspecified, uncomplicated; Z91.030 Bee allergy status; W57.XXXA Bitten or stung by nonvenomous insect and other nonvenomous arthropods, initial encounter
CPT/HCPCS: 99283

== ENCOUNTER 2023-12-03 06:46 | Emergency (ER) | payer OTHER ==
[2023-12-03] MEDS ORDERED: TOBRAMYCIN 0.3% OPHTH DROPS 5 ML BTL ONE (07:59)
== END 2023-12-03 08:10 | disposition home or self-care (01) ==
LOC: EC 06:46
DX: H10.9 Unspecified conjunctivitis (principal)
CPT/HCPCS: 99283

== ENCOUNTER 2024-11-16 08:03 | Emergency (ER) | payer OTHER ==
[2024-11-16 08:07] VITALS: TEMP 97.5
--- NOTE | 2024-11-16 08:33 | ED ---
General Adult HPI - General Chief complaint: Abdominal Pain Stated complaint: R side abd pain/NVD Time Seen by Provider: 11/16/24 08:08 Source: patient, RN notes reviewed Mode of arrival: ambulatory Limitations: no limitations - History of Present Illness Initial comments: 29-year-old male patient is presenting to the emergency room with complaints of abdominal pain and diarrhea. Patient states that he was constipated for approximately 14 days where he saw a doctor and was prescribed magnesium citrate. He states that he took the magnesium citrate at about 2100 on Thursday and had his first bowel movement at 1300 yesterday. States that he felt okay after the bowel movement however after a few hours he was having persistent diarrhea and lower abdominal cramping and pain. Currently states he has pain to the right lower quadrant of his abdomen. Denies bloody stools or dark or sticky stools. Denies urinary complaints. No previous surgeries of the abdomen. - Related Data Previous Rx's Medication Instructions Recorded Amoxicillin 500 mg PO Q8H #30 capsule 08/04/22 Ondansetron Odt [Zofran Odt] 4 mg PO Q8HR PRN #10 tab 08/04/22 Cyclobenzaprine [Flexeril] 5 mg PO BID 7 Days #14 tablet 06/20/23 Lidocaine 5% Patch [Lidoderm 5% 1 patch TOPICAL DAILY PRN 14 Days 06/20/23 Patch] #14 patch Hydrocortisone Cream 1 applic TOPICAL TID PRN #28 gm 09/30/23 [Hydrocortisone 1% Cream] Omeprazole [PriLOSEC] 20 mg PO AC-BRKFST #14 cap 11/16/24 Allergies Allergy/AdvReac Type Severity Reaction Status Date / Time bee venom protein (honey bee) Allergy Anaphylaxis Verified 11/16/24 08:07 Review of Systems ROS Statement: Those systems with pertinent positive or pertinent negative responses have been documented in the HPI. ROS Other: All systems not noted in ROS Statement are negative. Past Medical History Past Medical History: No Reported History History of Any Multi-Drug Resistant Organisms: None Reported Past Surgical History: No Surgical Hx Reported Past Psychological History: ADD/ADHD Smoking Status: Current every day smoker, Vaper Past Alcohol Use History: None Reported Past Drug Use History: Marijuana General Exam Limitations: no limitations Respiratory exam: Present: normal lung sounds bilaterally. Absent: respiratory distress, wheezes, rales, rhonchi, stridor Cardiovascular Exam: Present: regular rate, normal rhythm, normal heart sounds. Absent: systolic murmur, diastolic murmur, rubs, gallop, clicks GI/Abdominal exam: Present: soft, tenderness (RLQ), normal bowel sounds. Absent: distended, guarding, rebound, rigid Extremities exam: Present: normal inspection, full ROM, normal capillary refill. Absent: tenderness, pedal edema, joint swelling, calf tenderness Back exam: Present: normal inspection. Absent: CVA tenderness (R), CVA tenderness (L) Course Vital Signs 11/16/24 11/16/24 08:05 10:00 Temperature 97.5 F L Pulse Rate 54 L 80 Respiratory 20 18 Rate Blood Pressure 131/85 136/78 O2 Sat by Pulse 99 100 Oximetry Medical Decision Making - Medical Decision Making Was pt. sent in by a medical professional or institution (NAVID Conklin, ZIPPER MACHINE OPERATOR, urgent care, hospital, or custodial...) When possible be specific @ -No Did you speak to anyone other than the patient for history (EMS, parent, family, police, friend...)? What history was obtained from this source @ -No Did you review nursing and triage notes (agree or disagree)? Why? @ -I reviewed and agree with nursing and triage notes Were old charts reviewed (outside hosp., previous admission, EMS record, old EKG, old radiological studies, urgent care reports/EKG's, custodial records)? Report findings @ -No old charts were reviewed Differential Diagnosis (chest pain, altered mental status, abdominal pain women, abdominal pain men, vaginal bleeding, weakness, fever, dyspnea, syncope, headache, dizziness, GI bleed, back pain, seizure, CVA, palpatations, mental health, musculoskeletal)? @ -Differential Abdominal Pain Men: Appendicitis, cholecystitis, diverticulosis, ischemic bowel, pancreatitis, hepatitis, UTI, gastroenteritis, AAA, incarcerated hernia, bowel obstruction, constipation, inflammatory bowel, hepatitis, peptic ulcer disease, splenic infarction, perforated viscus, testicular torsion, this is not meant to be an all-inclusive list EKG interpreted by me (3pts min.). @ -None X-rays interpreted by me (1pt min.). @ -None done CT interpreted by me (1pt min.). @ -CT imaging of the abdomen pelvis with IV contrast reveals circumferential wall without surrounding fat stranding, appendix within normal limits U/S interpreted by me (1pt. min.). @ -None done What testing was considered but not performed or refused? (CT, X-rays, U/S, labs)? Why? @ -None What meds were considered but not given or refused? Why? @ -None Did you discuss the management of the patient with other professionals (professionals i.e. Dr., PA, ZIPPER MACHINE OPERATOR, lab, RT, psych nurse, rn social work, hot plate plywood press feeder, teacher, sergeant of officers, case resource manager)? Give summary @ -No Was smoking cessation discussed for >3mins.? @ -No Was critical care preformed (if so, how long)? @ -No Were there social determinants of health that impacted care today? How? (Homelessness, low income, unemployed, alcoholism, drug addiction, transporta tion, low edu. Level, literacy, decrease access to med. care, assisted, rehab)? @ -No Was there de-escalation of care discussed even if they declined (Discuss DNR or withdrawal of care, Hospice)? DNR status @ -No What co-morbidities impacted this encounter? (DM, HTN, Smoking, COPD, CAD, Cancer, CVA, ARF, Chemo, Hep., AIDS, mental health diagnosis, sleep apnea, morbid obesity)? @ -None Was patient admitted / discharged? Hospital course, mention meds given and route, prescriptions, significant lab abnormalities, going to OR and other pertinent info. @ -Discharge. 29-year-old male presenting to the ER with complaints of abdominal pain and diarrhea. Overall patient is well-appearing. He has right lower quadrant tenderness over McBurney's point on examination. Negative psoas sign. He is provided with IV fluids. Laboratory testing including CBC and CMP is unremarkable. CT reveals no evidence of appendicitis, possible duodenitis. He is provided with prescription for omeprazole and instructed to follow clear liquid diet over 24 hours and slowly reintroducing foods after. Recommend follow-up with primary care provider. Case discussed with my attending Dr. Park. Undiagnosed new problem with uncertain prognosis? @ -No Drug Therapy requiring intensive monitoring for toxicity (Heparin, Nitro, Insulin, Cardizem)? @ -No Were any procedures done? @ -No Diagnosis/symptom? @ -abdominal pain, unspecified. diarrhea Acute, or Chronic, or Acute on Chronic? @ -acute Uncomplicated (without systemic symptoms) or Complicated (systemic symptoms)? @ -uncomplicated Side effects of treatment? @ -No Exacerbation, Progression, or Severe Exacerbation? @ -No Poses a threat to life or bodily function? How? (Chest pain, [place], [place], pneumonia, PE, COPD, DKA, ARF, appy, cholecystitis, CVA, Diverticulitis, Homicidal, Suicidal, threat to staff... and all critical care pts) @ -No - Lab Data Result diagrams: 11/16/24 08:51 11/16/24 08:51 Lab Results 11/16/24 11/16/24 11/16/24 Range/Units 08:51 08:51 08:51 WBC 6.69 (4.50-10.00) 10*3/uL RBC 4.75 (4.40-5.60) 10*6/uL Hgb 14.2 (13.0-17.0) g/dL Hct 40.8 (39.6-50.0) % MCV 85.9 (80.0-97.0) fL MCH 29.9 (27.0-32.0) pg MCHC 34.8 (32.0-37.0) g/dL Plt Count 213 (140-440) 10*3/uL MPV 10.5 (9.5-12.2) fL Immature Gran % (Auto) 0.1 % Neutrophils % 66.2 % Lymphocytes % 24.5 % Monocytes % 7.5 % Eosinophils % 1.3 % Basophils % 0.4 % Immature Gran # 0.01 (0.00-0.04) 10*3/uL Neutrophils # 4.42 (1.80-7.70) 10*3/uL Lymphocytes # 1.64 (0.90-5.00) 10*3/uL Monocytes # 0.50 (0.20-1.00) 10*3/uL Eosinophils # 0.09 (0.04-0.35) 10*3/uL Basophils # 0.03 (0.00-0.10) 10*3/uL Sodium 137 (137-145) mmol/L Potassium 4.6 (3.5-5.1) mmol/L Chloride 103 (98-107) mmol/L Carbon Dioxide 25 (22-30) mmol/L Anion Gap 9 mmol/L BUN 15 (9-20) mg/dL Creatinine 0.57 L (0.66-1.25) mg/dL Est GFR (CKD-EPI)AfAm >90 (>60 ml/min/1.73 sqM) Est GFR (CKD-EPI)NonAf >90 (>60 ml/min/1.73 sqM) Glucose 108 H (74-99) mg/dL Plasma Lactic Acid Hero 1.2 (0.7-2.0) mmol/L Calcium 9.7 (8.4-10.2) mg/dL Total Bilirubin 0.5 (0.2-1.3) mg/dL AST 29 (17-59) U/L ALT 32 (4-49) U/L Alkaline Phosphatase 55 (38-126) U/L Total Protein 6.9 (6.3-8.2) g/dL Albumin 4.4 (3.5-5.0) g/dL Amylase 54 (30-110) U/L Lipase 63 (23-300) U/L Disposition Clinical Impression: Diarrhea, Duodenitis Disposition: HOME SELF-CARE Condition: Good Instructions (If sedation given, give patient instructions): Acute Diarrhea (ED) Additional Instructions: Please return to the Emergency Department if symptoms worsen or any other concerns. Prescriptions: Omeprazole [PriLOSEC] 20 mg PO AC-BRKFST #14 cap Is patient prescribed a controlled substance at d/c from ED?: No Referrals: Jakob Oneill MD [Primary Care Provider] - 1-2 days Time of Disposition: 09:43
[2024-11-16] MEDS: SODIUM CHLORIDE 0.9% 1,000 ML IV ONE (08:54)
[2024-11-16 08:58] LABS: Basophils # (A) 0.03 10*3/uL (0.00-0.10); Basophils % (A) 0.4 %; Eosinophils # (A) 0.09 10*3/uL (0.04-0.35); Eosinophils % (A) 1.3 %; HCT 40.8 % (39.6-50.0); HGB 14.2 g/dL (13.0-17.0); Lymphocytes # (A) 1.64 10*3/uL (0.90-5.00); Lymphocytes % (A) 24.5 %; MCH 29.9 pg (27.0-32.0); MCHC 34.8 g/dL (32.0-37.0); MCV 85.9 fL (80.0-97.0); Monocytes # (A) 0.50 10*3/uL (0.20-1.00); Monocytes % (A) 7.5 %; Neutrophils # (A) 4.42 10*3/uL (1.80-7.70); Neutrophils % (A) 66.2 %; Platelet Count 213 10*3/uL (140-440); RBC 4.75 10*6/uL (4.40-5.60); RDW 12.1 % (11.5-14.5); WBC 6.69 10*3/uL (4.50-10.00)
[2024-11-16 09:12] LABS: ALT 32 U/L (4-49); AST 29 U/L (17-59); African American GFR (CKD) >90 (>60 ml/min/1.73 sqM); Albumin 4.4 g/dL (3.5-5.0); Alkaline Phosphatase 55 U/L (38-126); Amylase 54 U/L (30-110); Anion Gap 9 mmol/L; Blood Urea Nitrogen 15 mg/dL (9-20); Calcium 9.7 mg/dL (8.4-10.2); Carbon Dioxide 25 mmol/L (22-30); Chloride 103 mmol/L (98-107); Glucose 108 mg/dL (74-99); Lipase 63 U/L (23-300); Non-African American GFR(CKD) >90 (>60 ml/min/1.73 sqM); Potassium 4.6 mmol/L (3.5-5.1); Sodium 137 mmol/L (137-145); Total Protein 6.9 g/dL (6.3-8.2)
--- NOTE | 2024-11-16 09:38 | CT ---
EXAMINATION TYPE: CT abdomen pelvis w con CT DLP: 926.6 mGycm, Automated exposure control for dose reduction was used. DATE OF EXAM: 11/16/2024 9:28 AM COMPARISON: CT abdomen pelvis 08/04/2022 CLINICAL INDICATION:Male, 29 years old with history of RLQ ab pain, diarrhea; RLQ abd pain, diarrhea. TECHNIQUE: Standard CT of the abdomen and pelvis following the administration of 100 cc of Isovue 3 00 IV contrast material. Coronal and sagittal reformats were performed. FINDINGS: LOWER CHEST: Unremarkable ABDOMEN LIVER: No focal lesion. Possible hepatic steatosis. GALLBLADDER AND BILE DUCTS: Unremarkable. PANCREAS: Unremarkable. SPLEEN: Unremarkable. ADRENAL GLANDS: Unremarkable. KIDNEYS AND URETERS: No evidence of hydronephrosis or renal calculus. The kidneys enhance symmetrical ly. Contrast allergy within both collecting systems and proximal ureters on the delayed phase. PELVIS BLADDER: Unremarkable REPRODUCTIVE: Unremarkable. ABDOMEN & PELVIS STOMACH AND BOWEL: Stomach appears unremarkable. Circumferential wall thickening of the duodenum with out surrounding fat stranding. The appendix is within normal limits with retrohepatic course. No evid ence of bowel obstruction. PERITONEUM: No evidence of pneumoperitoneum or free fluid. VASCULATURE: No evidence of aortic aneurysm. MUSCULOSKELETAL: No acute osseous abnormalities LYMPH NODES: No evidence for lymphadenopathy. SOFT TISSUE/ABDOMINAL WALL: Unremarkable IMPRESSION: 1. Circumferential wall thickening of the duodenum without surrounding fat stranding. May represent duodenitis from infectious/inflammatory etiology. Correlate clinically. 2. The appendix is within normal limits. [facility], , 11/16/2024 9:35 AM
[2024-11-16 10:01] VITALS: BP 136/78; PULSE 80; RESP 18
== END 2024-11-16 10:01 | disposition home or self-care (01) ==
LOC: EC 08:03
DX: K29.80 Duodenitis without bleeding (principal); R19.7 Diarrhea, unspecified; F17.290 Nicotine dependence, other tobacco product, uncomplicated; Z91.030 Bee allergy status
CPT/HCPCS: 36415; 80053; 82150; 83605; 83690; 85025; 74177; 99284; 96360; Q9967